=== PATIENT | male | born 1990 | race Asian ===

== ENCOUNTER → 2016-06-25 | Outpatient (CLI) | payer OTHER ==
--- NOTE | 2016-06-25 16:14 | REP ---
MR THORACIC SPINE WITHOUT CONTRAST: HISTORY: Back pain. A small left paracentral disc protrusion is present at the T2-3 level. There is minimal effacement of the thecal sac without spinal cord compression. The T2 neural foramina are patent. There is no other disc bulge or herniation. The remaining neural foramina are patent. The spinal cord is normal in signal intensity. There is no intradural extramedullary lesion. Normal signal intensity is present in the thoracic vertebral bodies. IMPRESSION: Small disc protrusion at the T2-3 level without spinal cord compression. Signed by Juan Pelayo MD 06/25/2016 04:15 P
== END ==
LOC: M RAD 15:14
PROVIDERS: ATTEND Physician Assistant
DX: M25.511 Pain in right shoulder (principal)